=== PATIENT | female | born 2000 | race Caucasian/White ===

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

== ENCOUNTER 2024-03-01 15:03 | Emergency (ER) | payer OTHER ==
[~2024-03-01] VITALS: Ht 157.5 cm; Wt 46.7 kg
[2024-03-01 15:52] VITALS: BP 98/66; PULSE 71; RESP 18; TEMP 98.3; O2SAT 98
[2024-03-01] MEDS ORDERED: IBUP-2213 PO (17:04)
[2024-03-01] MEDS ORDERED: CYCL-711 PO (17:04)
[2024-03-01] MEDS ORDERED: KETOROLAC 30 MG/ML VIAL ONE (17:09)
[2024-03-01] MEDS: KETOROLAC 30 MG/ML VIAL IM ONE (17:12)
[2024-03-01 17:29] VITALS: BP 98/66; PULSE 71; RESP 18; TEMP 98.3; O2SAT 98
== END 2024-03-01 17:31 | disposition home or self-care (01) ==
LOC: MED 15:03
DX: M54.2 Cervicalgia (principal); G89.29 Other chronic pain; Z79.899 Other long term (current) drug therapy
CPT/HCPCS: 72050; 81025; 96372; 99283; J1885